=== PATIENT | male | born 1960 | race Caucasian/White ===

== ENCOUNTER 2017-02-23 09:51 | Emergency (ER) | payer OTHER ==
[~2017-02-23] VITALS: Ht 167.6 cm; Wt 94.0 kg
[2017-02-23 09:59] VITALS: Ht 167.6 cm; Wt 94.0 kg
[2017-02-23] MEDS ORDERED: KETOROLAC 30 MG INJ IM STA (12:02)
--- NOTE | 2017-02-23 12:09 | ERD ---
ER Documentation Chief Complaint Date/Time DATE: 02/23/17 TIME: 12:07 Chief Complaint Complains of lower back pain x 3 days HPI 56-year-old male with history of low back pain with sciatica, arthritis presents to the emergency department secondary to complaints of low back pain bilaterally with radiation down bilateral legs. This is chronic for over 1 year but symptoms have worsened over the past week. The patient denies any loss of bowel or bladder function, loss of function of the lower extremities, fevers, chills, or other symptoms at this time. The patient has been taking ibuprofen and Tylenol at home with only mild relief of symptoms. 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 There are no other signs or symptoms to report at this time. ROS All systems reviewed and are negative except as per history of present illness. Allergies Allergies: Coded Allergies: No Known Allergy (Unverified , 06/09/16) PMhx/Soc Medical and Surgical Hx: pt denies Medical Hx, pt denies Surgical Hx Hx Alcohol Use: Yes Hx Substance Use: No Hx Tobacco Use: Yes Smoking Status: Current some day smoker FmHx Noncontributory for chief complaint Physical Exam Vitals Vital Signs Date Time Temp Pulse Resp B/P Pulse Ox O2 Delivery O2 Flow Rate FiO2 02/23/17 09:59 98.3 71 20 109/64 98 Physical Exam Const: The patient is resting comfortably in no acute distress. Head: Atraumatic Eyes: Normal Conjunctiva ENT: Normal External Ears, Nose and Mouth. Neck: Full range of motion..~ No meningismus. Resp: Clear to auscultation bilaterally Cardio: Regular rate and rhythm, no murmurs Abd: Soft, non tender, non distended. Normal bowel sounds Skin: No petechiae or rashes Back: No midline or flank tenderness. There is positive straight leg raise bilaterally. Ext: No cyanosis, or edema Neur: Awake and alert Psych: Normal Mood and Affect Results 24 hrs Current Medications Medications (Trade) Dose Ordered Sig/Libby Route PRN Reason Start Time Stop Time Status Last Admin Dose Admin Dexamethasone (Decadron) 10 mg ONCE ONCE IM 02/23/17 12:30 02/23/17 12:31 Ketorolac Tromethamine (Toradol) 30 mg ONCE STAT IM 02/23/17 12:02 02/23/17 12:03 DC Procedures/MDM 56-year-old male presents to the emergency department secondary to complaints of bilateral sciatica pain. Physical examination the patient's vitals are within normal limits. The patient does have positive straight leg raise bilaterally consistent with sciatica. The patient has had no bowel or bladder incontinence and I have low suspicion for cauda equina, epidural abscess, vertebral body fracture, septicemia, or other emergent conditions. The patient was treated in the department with IM Toradol and IM Decadron and was feeling improved before discharge. The patient is to certainly follow-up with his primary care physician regarding his symptoms for further evaluation and treatment. The patient understands and agrees with the discharge plan and diagnosis. ER precautions were discussed and the patient demonstrates good understanding. Departure Diagnosis: Primary Impression: Sciatica Laterality: bilateral Qualified Code: M54.31 - Bilateral sciatica Additional Impressions: Back pain Back pain location: low back pain Chronicity: chronic Back pain laterality : bilateral Sciatica presence: with sciatica Sciatica laterality: sciatica laterality unspecified Qualified Code: M54.40 - Chronic bilateral low back pain with sciatica, sciatica laterality unspecified Right arm pain Condition: Fair Patient Instructions: Back Pain (Acute Or Chronic), Back Pain W/ Sciatica [facility] Usted se louis hecho un examen mdico de control que le indica que no est en elkin condicin que requiera tratamiento urgente en el Departamento de Emergencia. Un estudio ms profundo y el tratamiento de granados condicin pueden esperar sin ningn riesgo hasta que usted sea atendida/o en el consultorio de granados mdico o elkin cl kvng. Es responsabilidad suya arreglar elkin taylor para el seguimiento del lori. MANEJO DE CONDICIONES NO URGENTES EN EL FUTURO 1) Si usted tiene un mdico de atencin primaria: Usted debera llamar a granados mdico de atencin primaria antes de venir al departamento de emergencia. Despus de las horas de consultorio, granados doctor o granados asociado/a est disponible por telfono. El mdico o enfermero de mala en el servicio telefnico puede asesorarle por josey medio para atender el problema, o lori contrario se puede programar elkin taylor. 2) Si usted no tiene un mdico de atencin primaria: Llame al mdico o clnica de referencia que aparece abajo jennie las horas de consultorio para hacer elkin taylor para que le vean. CLINICAS: [facility] [phone] [facility] [phone] [facility] [phone] [facility] [phone] [facility] [phone] [address] [facility]. [phone] [address] Additional Instructions: No mas mejor en 2-3 freitas, regresar. Mas peor en 24 horas, regresear rapidamente. Ir a doctor primario in 5-7 freitas. Usar instrucciones cuando deedee medicamento. DAYANA VILLALBA PA-C February 23, 2017 12:09
[2017-02-23] MEDS ORDERED: DEXAMETHASONE 10 MG/ML 1 ML INJ IM ONE (12:30)
== END 2017-02-23 12:41 | disposition home or self-care (01) ==
LOC: FTE 09:51
DX: M54.42 Lumbago with sciatica, left side (principal); M54.41 Lumbago with sciatica, right side; M79.601 Pain in right arm; F17.210 Nicotine dependence, cigarettes, uncomplicated
CPT/HCPCS: 96372; J1100; J1885; Z7502

== ENCOUNTER 2018-04-28 05:48 | Emergency (ER) | END 2018-04-28 08:45 | disposition home or self-care (01) ==

== ENCOUNTER 2019-03-17 12:22 | Emergency (ER) | payer OTHER ==
[~2019-03-17] VITALS: Ht 177.8 cm; Wt 103.5 kg
[~2019-03-17 12:22] MED LIST: AMOX1TAB10 PO; FIORICET PO; PRED20TA PO
[2019-03-17 12:28] VITALS: BP 127/72; PULSE 88; RESP 20; Ht 177.8 cm; Wt 103.5 kg
--- NOTE | 2019-03-17 12:36 | EN ---
Date/Time of Note Date/Time of Note DATE: 03/17/19 TIME: 12:32 ER Progress Note 58-year-old male presenting to the emergency department complaining of right knee pain intimately for the past 2 months as well as left heel pain for the past 3 weeks. He states he has had these symptoms in the past and received a "cortisone shot" with significant relief. He reports 10 out of 10 pain which is constant. Patient had tenderness palpation of the left heel in the anterior right knee. Patient will be sent to ER2 for injections, as he requested. DAYANA VILLALBA PA-C March 17, 2019 12:36
--- NOTE | 2019-03-17 13:18 | ERD ---
ER Documentation Chief Complaint Chief Complaint heel pain/swellin s/p surgery last nov, has not seen his surgeon since then HPI 58-year-old male with past medical history of chronic lower back pain, is post meniscal repair to right knee November who presents with complaint of left heel pain and swelling and right knee pain. Pain of left here at feel described as burning type pain made worse by ambulation. He denies trauma to the area. Has had intermittent right knee pain since his surgery but he denies knee buckling, knee instability, falls, weakness of right lower extremity. States he is gotten steroids in the past which have helped with symptoms. ROS All systems reviewed and are negative except as per history of present illness. Medications Home Meds Active Scripts Prednisone* (Prednisone*) 20 Mg Tab, 40 MG PO DAILY for 4 Days, TAB Prov:SHAINA REINA PA-C 04/28/18 Acetamin/Butalbital/Caffeine* (Fioricet*) [id number] Tab, 1 TAB PO Q6H PRN for PAIN, #30 TAB Prov:SHAINA REINA PA-C 04/28/18 Amoxicillin/Potassium Clav (Amox-Clav 875-125 mg Tablet) 875-125 mg Tab, 1 TAB PO BID for 7 Days, #14 TAB Prov:SHAINA REINA PA-C 04/28/18 Allergies Allergies: Coded Allergies: acetaminophen (Verified Allergy, Unknown, 03/17/19) hydrocodone (Verified Allergy, Unknown, 03/17/19) ibuprofen (Verified Allergy, Unknown, 03/17/19) PMhx/Soc History of Surgery: Yes (R knee) Anesthesia Reaction: No Hx Neurological Disorder: No Hx Respiratory Disorders: No Hx Cardiac Disorders: No Hx Psychiatric Problems: No Hx Miscellaneous Medical Probl: No Hx Alcohol Use: Yes Hx Substance Use: No Hx Tobacco Use: Yes FmHx Family History: No diabetes, No coronary disease, No other Physical Exam Vitals Vital Signs Date Temp Pulse Resp B/P (MAP) Pulse Ox O2 O2 Flow FiO2 Time Delivery Rate 03/17/19 98.0 88 20 127/72 98 12:28 (90) Physical Exam I have reviewed the triage vital signs. Const: Well nourished, well developed, appears stated age Eyes: PERRL, no conjunctival injection HENT: NCAT, Neck supple without meningismus CV: RRR, Warm, well-perfused extremities RESP: CTAB, Unlabored respiratory effort GI: soft, non-tender, non-distended, no masses MSK: No gross deformities appreciated Lower Extremity - bilateral: Skin: No laceration Compartments: Soft Motor: Full active range of motion hip/knee/ankle/foot Sensation: Intact to light touch FDWS/MF/LF/P surfaces. Bones: Nontender pelvis/knee/proximal tibia/ malleoli/foot Joints: No effusion or laxity Pulses/Perfusion: 2+ DP, Capillary refill < 2 seconds Skin: Warm, dry. No rashes Neuro: grossly non focal Psych: Appropriate mood and affect. Procedures/MDM 58-year-old male presents with complaint of heel pain and swelling He is afebrile and without any signs or symptoms of localized skin infection. Symptoms consistent with plantar fasciitis. His right knee pain is likely chronic. ED course/plan: X-rays of of right knee without any acute fracture or dislocation, moderate- sized joint effusion, minimal degenerative joint disease X-ray of left foot without acute findings, no fracture or dislocation Toradol, Decadron will discharge with NSAIDs Patient instructed to follow-up with surgeon in coordination with his PMD DISPOSITION PLAN: We discussed follow up with the patient's primary care doctor within 24 to 48 hours. Patient counseled regarding my diagnostic impression and care plan. Prior to discharge all questions answered. Pt agrees with treatment plan and understands strict return precautions. Precautionary instructions provided including instructions to return to the ER if not improving or for any worsening or changing symptoms or concerns. Disclaimer: Inadvertent spelling and grammatical errors are likely due to EHR/dictation software use and do not reflect on the overall quality of patient care. Also, please note that the electronic time recorded on this note does not necessarily reflect the actual time of the patient encounter. Departure Diagnosis: Primary Impression: Foot pain Condition: Stable Referrals: [facility] (PCP) Additional Instructions: Call your primary care doctor TOMORROW for an appointment during the next 2-3 days.See the doctor sooner or return here if your condition worsens before your appointment time. DELL SIDDIQI PA-C March 17, 2019 13:18
[2019-03-17] MEDS ORDERED: DEXAMETHASONE 10 MG/ML 1 ML INJ IM ONE (14:00)
[2019-03-17] MEDS ORDERED: KETOROLAC 30 MG INJ IM STA (14:01)
[2019-03-17] MEDS ORDERED: TRAM50TA2 PO (14:13)
[2019-03-17] MEDS ORDERED: PRED20TA PO (14:13)
== END 2019-03-17 15:40 | disposition left against medical advice (07) ==
LOC: E/R 12:22 → FTE 15:40
DX: M79.673 Pain in unspecified foot (principal); Z87.891 Personal history of nicotine dependence
CPT/HCPCS: 73562; 73630; J1100; J1885; 96372